=== PATIENT | female | born 1965 | race Hispanic/Latino ===

== ENCOUNTER → 2016-06-28 | Outpatient (CLI) | payer BC ==
[~2016-06-28] MED LIST: CETI10TA17; CETI10TA17 PO; FERR-84 PO; FLDR.1T PO; LACT1TAB11 PO; MNTL10T; PANT40SU; PNT40TEC PO; SUCR1TAB36 PO
--- NOTE | 2016-06-29 12:17 | Diagnostic Imaging Report ---
PROCEDURE: MRI lumbar spine. TECHNIQUE: Multiplanar, multisequence MRI of the lumbar spine was performed without contrast. INDICATION: Back pain. FINDINGS: The alignment of the posterior spinal line is satisfactory. The vertebral body heights are preserved. There is mild disc desiccation at all levels. There is mild disc height loss at the T12/L1 level. There are mild anterior osteophytes in the lower thoracic and upper lumbar spine levels also seen. There is marrow signal edema and sclerosis seen on the endplates at the T12/L1 level. This is reactive to disc disease with no suspicious marrow signal abnormality seen. The cauda equina and conus medullaris appear grossly unremarkable. T12/L1: There is a mild disc bulge with no central canal or lateral recess stenosis. No foraminal narrowing. L1/2: There is a minimal disc bulge and mild ligamentous flavum thickening. No central canal or lateral recess stenosis. No foraminal narrowing. L2/3: There is a mild disc bulge and mild facet and ligamentous hypertrophy. No central canal or lateral recess stenosis. No foraminal stenosis. L3/L4: No disc herniation. No central canal or lateral recess stenosis. There is mild facet hypertrophy seen at both sides. There is also along the superior lateral aspect of the left facet joint a synovial cyst measuring 6 mm without mass effect on the foramina or the spinal canal. Both foramina appear patent. A tiny synovial cyst superior to the right facet joints is also present. L4/L5: There is a minimal disc bulge and mild facet hypertrophy. No central canal stenosis. There is minimal narrowing of the lateral recess bilaterally. The right foramen demonstrates mild narrowing medially with portion of the hypertrophied facets on the right side projecting into the foramen mildly compressing the adjacent right L4 spinal nerve. L5/S1: There is a diffuse disc bulge asymmetric to the left. There is no significant facet arthropathy. No central canal stenosis. There is mild narrowing of the left lateral recess. The right lateral recess is patent. The posterior lateral herniated disc on the left side displaces the descending left S1 nerve root posteriorly in the left lateral recess without significant compression otherwise. The foramina demonstrates mild stenosis bilaterally. IMPRESSION: Generally mild degenerative disc and facet changes. Dictated by: Dictated on workstation # [id number]
== END ==
LOC: RAD 13:04
PROVIDERS: ATTEND Family Medicine
DX: M54.42 Lumbago with sciatica, left side (principal)
CPT/HCPCS: 72148

== ENCOUNTER → 2016-11-29 | Outpatient (CLI) | payer BC | DX: Z12.31 Encounter for screening mammogram for malignant neoplasm of breast (principal) ==

== ENCOUNTER 2017-01-14 05:48 | Outpatient (CLI) | payer BC ==
[~2017-01-14] VITALS: Ht 160 cm; Wt 71.2 kg
[2017-01-15] MEDS ORDERED: SUCR1TAB36 PO ×2 (11:57)
== END 2017-01-14 10:22 ==
LOC: PREOP 05:48
PROVIDERS: ATTEND Surgery
DX: Z01.818 Encounter for other preprocedural examination (principal); K21.9 Gastro-esophageal reflux disease without esophagitis

== ENCOUNTER 2017-01-15 10:05 | Day surgery (SDC) | payer BC ==
[2017-01-15] MEDS ORDERED: LACTATED RINGERS 1,000 ML IV STA (10:15)
[2017-01-15] MEDS ORDERED: HURRICAINE EXT TUBE (BENZOCAINE) XX PRN (10:15)
[2017-01-15 10:20] VITALS: BP 106/58
[2017-01-15] MEDS ORDERED: proPOfol 200 MG/20 ML (DIPRIVAN) VIAL IV ONE ×2 (11:06→11:19)
[2017-01-15] MEDS ORDERED: LIDOCAINE PF 2% 5 ML (XYLOCAINE) VIAL ONE (11:06)
--- NOTE | 2017-01-15 11:07 | Progress Note-Pre Operative ---
Pre-Operative Progress Note H&P Reviewed The H&P was reviewed, patient examined and no changes noted. Date Seen by Provider: Jan 15, 2017 Time Seen by Provider: 11:06 Date H&P Reviewed: Jan 15, 2017 Time H&P Reviewed: 11:06 Pre-Operative Diagnosis: gerd JOHNSON WALKER DO Jan 15, 2017 11:06
[2017-01-15] MEDS ORDERED: HURRICAINE EXT TUBE (BENZOCAINE) ONE (11:08)
[2017-01-15 11:50] VITALS: BP 93/53
[2017-01-15] MEDS ORDERED: SUCR1TAB36 PO ×2 (11:57)
--- NOTE | 2017-01-15 11:58 | Discharge Inst-Simple/Standard ---
Discharge Inst-Standard Patient Instructions/Follow Up Plan of Care/Instructions/FU: follow up in 2 weeks Take medication as directed. Activity as Tolerated: Yes Discharge Diet: No Restrictions ABELARDO SCOTT APRN Jan 15, 2017 11:58
[2017-01-15 12:20] VITALS: BP 109/47
[2017-01-15 12:25] VITALS: BP 109/47
--- NOTE | 2017-01-15 13:20 | Progress Note-Post Operative ---
Post-Operative Progess Note Surgeon (s)/Pharmacy Affairs Assistant (s) Surgeon JOHNSON WALKER DO Pharmacy Affairs Assistant: na Pre-Operative Diagnosis gerd Post-Operative Diagnosis gastritis Procedure & Operative Findings Date of Procedure 01/15/17 Procedure Performed/Findings egd c biopsies Anesthesia Type per golf club weigher Estimated Blood Loss Estimated blood loss (mL): none Specimens/Packing Specimens Removed antrum, ge junction JOHNSON WALKER DO Jan 15, 2017 1:20 pm
--- NOTE | 2017-01-16 02:55 | OPERATIVE REPORT ---
DATE OF SERVICE: 01/15/2017 PREOPERATIVE DIAGNOSIS: Gastroesophageal reflux disease. POSTOPERATIVE DIAGNOSIS: Gastritis, small hiatal hernia. PROCEDURE: EGD with biopsy. SURGEON: Johnson Unger DO ANESTHESIA: Per CURING ROOM WORKER. ESTIMATED BLOOD LOSS: None. COMPLICATIONS: None. INDICATIONS: The patient is a 52-year-old female with slightly worsening reflux symptoms. She understands risks and benefits of procedure and wished to proceed with procedure. Consent was signed and in the chart. DESCRIPTION OF PROCEDURE: The patient was taken to the endoscopy suite, placed in left lateral recumbent position. Timeout was performed. Scope was inserted in mouth, down the esophagus, stomach and into the duodenum without difficulty. There were no polyps, masses or ulcerations within the duodenum. The scope was then slowly retracted back, stomach was further insufflated. Some slight erythematous changes present consistent with slight gastritis that was present. Biopsy of the antrum was obtained. Scope was retroflexed noting small hiatal hernia and some couple small benign appearing polyps. Scope was returned to its normal position, slowly withdrawn back into the distal esophagus, which had some slight erythematous changes. Biopsy of the GE junction was obtained. Scope was then slowly retracted back until completely removed, noting no other pathology. RECOMMENDATIONS: The patient will be kept on Protonix 40 mg daily. We will add Carafate 1 gram four times a day. We will have her follow up in the office in approximately 3 weeks to see how she is doing at that time. Job ID: [id number] DocumentID: [id number] Dictated Date: 01/15/2017 13:23:11 Fitness Club Manager Date: 01/16/2017 02:54:26 Dictated By: JOHNSON UNGER DO
== END 2017-01-15 12:25 | disposition home or self-care (01) ==
LOC: ENDO 10:05
PROVIDERS: ATTEND Surgery
DX: K21.9 Gastro-esophageal reflux disease without esophagitis (principal); K44.9 Diaphragmatic hernia without obstruction or gangrene; K29.70 Gastritis, unspecified, without bleeding; J45.909 Unspecified asthma, uncomplicated; F41.9 Anxiety disorder, unspecified; M54.9 Dorsalgia, unspecified; Z79.899 Other long term (current) drug therapy
CPT/HCPCS: 84703

== ENCOUNTER 2017-03-14 14:54 | Outpatient (CLI) | payer BC ==
[~2017-03-14] VITALS: Ht 160 cm; Wt 71.2 kg
[2017-03-14] MEDS ORDERED: methylPREDNISolone 80 MG/ML (DEPO MEDROL) VIAL ONE (15:21)
[2017-03-14 16:00] VITALS: BP 118/70
[2017-03-14 16:23] VITALS: BP 116/72
--- NOTE | 2017-03-20 12:29 | OPERATIVE REPORT ---
DATE OF SERVICE: DIAGNOSIS: Lumbar radiculopathy. PROCEDURE: Fluoroscopic guided interlaminar epidural steroid injection. PROCEDURE IN DETAIL: After obtaining informed consent from the patient, the patient's chart was reviewed. The patient was then brought to the procedure room and placed in the prone position. A timeout was performed. The back was prepped with antiseptic solution and under fluoro guidance, the patient's lumbar spine was identified at the level of L5-S1. The L5-S1 vertebra was identified with fluoro guidance and approximately 2 mL of 1.5% lidocaine solution was used to anesthetize the skin directly down to the pedicle of the L5-S1 and under fluoroscopic guidance, the tract was anesthetized up to the interlaminar space and the ligamentum flavum. This needle was withdrawn. Then, a 20-gauge 3.5 inch Tuohy needle was then directed following the same tract that was anesthetized with the spinal needle. Using loss of resistance, the epidural space was identified and then the syringe was switched for contrast solution which was injected, approximately 1 mL. After secondary confirmation of epidural access, another syringe was placed and 80 mg of Depo-Medrol was injected. The Tuohy needle was then flushed out with approximately 2 mL of the normal saline used from the loss of resistance syringe. Band-Aids were applied to all the procedure sites. The patient tolerated the procedure well and was taken to the recovery room in stable condition. COMPLICATIONS: None. Job ID: [id number] DocumentID: [id number] Dictated Date: 03/19/2017 13:27:10 Street Light Repairer Helper Date: 03/20/2017 03:49:41 Dictated By: PING WASHINGTON DO
== END 2017-03-14 16:25 | disposition home or self-care (01) ==
LOC: CARD 14:54
PROVIDERS: ATTEND Pain Medicine Interventional Pain Medicine
DX: M54.16 Radiculopathy, lumbar region (principal); M47.817 Spondylosis without myelopathy or radiculopathy, lumbosacral region
CPT/HCPCS: 62323

== ENCOUNTER → 2018-12-02 | Outpatient (CLI) | payer BC ==
--- NOTE | 2018-12-02 15:37 | Diagnostic Imaging Report ---
INDICATION: Routine screening. COMPARISON: 12/02/2017 and 11/29/2016. TECHNIQUE: 2D and 3D bilateral screening mammography was performed with CAD. FINDINGS: Both breasts are heterogeneously dense, limiting the sensitivity of mammography. The circumscribed ovoid density in the medial right breast appears stable. The circumscribe ovoid density in the lateral portion of the left breast also appears to be stable. No new mass or malignant appearing microcalcifications are seen. The axillae are unremarkable. IMPRESSION: No mammographic features suspicious for malignancy are identified. ACR BI-RADS Category 2: Benign findings. Result letter will be mailed to the patient. Note: At least 10% of breast cancer is not imaged by mammography. Dictated by: Dictated on workstation # [id number]
== END ==
LOC: RAD 14:37
PROVIDERS: ATTEND Obstetrics & Gynecology
DX: Z12.31 Encounter for screening mammogram for malignant neoplasm of breast (principal)
CPT/HCPCS: 77067

== ENCOUNTER 2018-12-17 14:30 | Outpatient (CLI) | payer BC ==
[~2018-12-17] VITALS: Ht 160 cm; Wt 67.6 kg
[2018-12-17] MEDS ORDERED: CETI10TA17 PO (14:40)
[2018-12-17] MEDS ORDERED: PANT40TA3 PO (14:40)
== END 2018-12-17 14:51 | disposition home or self-care (01) ==
LOC: PREOP 14:30
PROVIDERS: ATTEND Surgery
DX: Z01.818 Encounter for other preprocedural examination (principal)

== ENCOUNTER 2019-05-17 12:37 | Emergency (ER) | payer BC ==
[~2019-05-17] VITALS: Ht 160 cm; Wt 68.1 kg
[~2019-05-17 12:37] MED LIST changes: +PANT40TA3 PO
--- NOTE | 2019-05-17 13:51 | ED Integumentary General ---
General Chief Complaint: Laceration Stated Complaint: R HAND LAC Nursing Triage Note: Patient ambulatory to FT3 with complaint of right hand laceration. Patient states she was cutting potatoes with a mandelin slicer when she accidently cut herself. Bleeding has not stopped. Patient is currently on Cephalexin for a sinus infection. Source: patient Exam Limitations: no limitations History of Present Illness Date Seen by Provider: May 17, 2019 Time Seen by Provider: 13:51 Initial Comments 54-year-old female patient presents with complaints of laceration to the right hand after using a mandolin slicer just prior to arrival. Reports laceration continues to bleed. She denies numbness or tingling. Patient currently is on Keflex for a sinus infection. Timing/Duration: just prior to arrival Location: hands (rt hand) Possible Cause: other (mandolin slicer) Modifying Factors: worse with other (worsening pain with palpation) Allergies and Home Medications Allergies Coded Allergies: azithromycin (Unverified Allergy, Mild, 01/14/17) acetaminophen (Verified Allergy, Unknown, itching, 01/14/17) oxycodone (Verified Allergy, Unknown, itching, 01/14/17) propoxyphene (Verified Allergy, Unknown, itching, 01/14/17) Home Medications Cetirizine HCl 10 Mg Tablet, 10 MG PO HS, (Reported) Ferrous Sulfate 325 Mg Tablet, 325 MG PO HS, (Reported) Fludrocortisone Acetate 0.1 Mg Tab, 0.1 MG PO HS, (Reported) Pantoprazole Sodium 40 Mg Tablet.dr, 40 MG PO HS, (Reported) Patient Home Medication List Home Medication List Reviewed: Yes Review of Systems Review of Systems Constitutional: no symptoms reported Respiratory: no symptoms reported Cardiovascular: no symptoms reported Musculoskeletal: no symptoms reported Skin: see HPI Psychiatric/Neurological: Denies Numbness, Denies Paresthesia, Denies Tingling, Denies Weakness Hematologic/Lymphatic: No Symptoms Reported All Other Systems Reviewed Negative Unless Noted: Yes (Negative excepted noted.) Past Dqjdtav-Rsgeax-Wnvybl Hx Past Med/Social Hx: Reviewed Nursing Past Med/Soc Hx Patient Social History Recent Foreign Travel: No Contact w/Someone Who Travel: No Recent Infectious Disease Expo: No Recent Hopitalizations: No Immunizations Up To Date Tetanus Booster (TDap): Unknown Date of Pneumonia Vaccine: Jul 27, 2010 Date of Influenza Vaccine: Mar 19, 2016 Seasonal Allergies Seasonal Allergies: Yes Past Medical History Surgeries: Yes (right foot) Gallbladder Respiratory: Yes (ALLERGY INDUCED ASTHMA) Asthma Cardiac: Yes (INFREQUENT PALPITATIONS TYPICALLY R/T ANXIETY) Neurological: No Reproductive Disorders: No Female Reproductive Disorders: Denies Sexually Transmitted Disease: Yes HIV/AIDS: No Genitourinary: No Gastrointestinal: Yes (dysphagia) Gastroesophageal Reflux, Hiatal Hernia Musculoskeletal: No Chronic Back Pain Endocrine: No HEENT: No Loss of Vision: Bilateral Hearing Impairment: Denies Cancer: No Psychosocial: Yes Anxiety Integumentary: Yes Eczema Blood Disorders: Yes (HX LOW IRON) Adverse Reaction/Blood Tranf: No (N/A) Family Medical History Reviewed Nursing Family Hx No Pertinent Family Hx Physical Exam Vital Signs Vital Signs - First Documented 05/17/19 13:00 Temp 36.8 Pulse 90 Resp 14 B/P (MAP) 106/56 (73) Pulse Ox 97 O2 Delivery Room Air Capillary Refill : Less Than 3 Seconds General Appearance: WD/WN, no apparent distress Cardiovascular: normal peripheral pulses, regular rate, rhythm, no murmur Respiratory: lungs clear, normal breath sounds, no respiratory distress Extremities: normal range of motion, normal capillary refill; No swelling; other (1x3 cm superficial flap laceration (involving skin only) to the rt thenar palm with slight bleeding. No subcutaneous tissue visible. No cellulitis. Mild soft tissue tenderness. No bony tenderness noted.) Neurologic/Psychiatric: no motor/sensory deficits, alert, normal mood/affect, oriented x 3 Skin: normal color, warm/dry, other (1x3 cm superficial flap laceration (involving skin only) to the rt thenar palm with slight bleeding. No subcutaneous tissue visible. No cellulitis. Mild soft tissue tenderness. No bony tenderness noted.) Skin Problem Location: upper extremities (rt hand) Skin Problem Character: other (1x3 cm superficial flap laceration (involving skin only) to the rt thenar palm with slight bleeding. No subcutaneous tissue visible. No cellulitis. Mild soft tissue tenderness. No bony tenderness noted.) Progress/Results/Core Measures Results/Orders My Orders Orders - KASH GRADY Dipht,Pertuss(Acell),Tet Adult (Boostrix (05/17/19 14:15) Medications Given in ED Current Medications Medications Dose Ordered Sig/Valeria Route Start Time Stop Time Status Last Admin Dose Admin Diphtheria/ Tetanus/Acell Pertussis 0.5 ml ONCE ONCE IM 05/17/19 14:15 05/17/19 14:16 DC 05/17/19 14:28 0.5 ML Vital Signs/I&O 05/17/19 13:00 Temp 36.8 Pulse 90 Resp 14 B/P (MAP) 106/56 (73) Pulse Ox 97 O2 Delivery Room Air Blood Pressure Mean: 73 POS Departure Communication (Admissions) Wound cleansed with chlorhexidine and sterile saline. Steri-Strips and Mastisol applied to the skin flap to protect the wound bed. Wound wrapped with 4 x 4 g auze, Kerlix, and a Colles' splint applied to protect the hand. Patient to follow-up with her primary care provider if needed. Return to the emergency department for worsened symptoms or any other concerns. Impression Primary Impression: Superficial laceration of right hand Qualified Codes: S61.411A - Laceration without foreign body of right hand, initial encounter Disposition: HOME, SELF-CARE Condition: Improved Departure-Patient Inst. Decision time for Depature: 14:12 Referrals: ROLAND SPAULDING MD (PCP/Family) Primary Care Physician Patient Instructions: Wound Care Add. Discharge Instructions: All discharge instructions reviewed with patient and/or family. Voiced understanding. Continue usual home medications. Ibuprofen [id number] as directed for pain. Tomorrow morning you may remove the bandage. Shower with antibacterial soap. Avoid scrubbing the right hand until the wound has healed. Pat dry. Cover with gauze. You may use the hand brace as instructed to help protect the wound. Follow-up with your family practitioner if needed. Return in the emergency department for worsened symptoms, redness, fever, drainage, or any other concerns. KASH GRADY May 17, 2019 13:51 POS
[2019-05-17] MEDS ORDERED: TETANUS,DIPTH,PERTUSS P/F (BOOSTRIX) 0.5 ML VIAL IM ONE (14:15)
[2019-05-17 14:32] VITALS: BP 106/56
== END 2019-05-17 14:34 | disposition home or self-care (01) ==
LOC: EDUNIT# 12:37 → ER 12:38
DX: S61.411A Laceration without foreign body of right hand, initial encounter (principal); J45.909 Unspecified asthma, uncomplicated; K21.9 Gastro-esophageal reflux disease without esophagitis; F41.9 Anxiety disorder, unspecified; Z23 Encounter for immunization; Z88.1 Allergy status to other antibiotic agents; Z88.6 Allergy status to analgesic agent; Z88.5 Allergy status to narcotic agent; Z88.8 Allergy status to other drugs, medicaments and biological substances; W26.8XXA Contact with other sharp object(s), not elsewhere classified, initial encounter
CPT/HCPCS: 90471; 90715; 99284

== ENCOUNTER → 2019-11-12 | Outpatient (CLI) | payer BC | LOC: CARD 09:13 | PROVIDERS: ATTEND Internal Medicine Cardiovascular Disease | DX: R00.2 Palpitations (principal); R06.00 Dyspnea, unspecified; R00.1 Bradycardia, unspecified; K21.9 Gastro-esophageal reflux disease without esophagitis | CPT/HCPCS: 93306 ==

== ENCOUNTER → 2019-11-18 | Outpatient (CLI) | payer BC ==
[~2019-11-18] VITALS: Ht 160 cm; Wt 154.0 kg
[~2019-11-18] MED LIST changes: +CATHETER FLUSH 10 ML SYR IV PRN
[2019-11-18 16:43] VITALS: BP 102/76
--- NOTE | 2019-11-18 16:43 | Cardiology Stress Test Report ---
Stress Test Report Date of Procedure/Referring: Date of Procedure: Nov 18, 2019 PCP Deanne Pappas MD Admitting Physician Mariella Andrea MD Indications: Palpitation Baseline Heart Rate: 72 Baseline Blood Pressure: Blood Pressure Systolic: 102 Blood Pressure Diastolic: 76 Baseline EKG: Baseline EKG: Normal sinus rhythm Summary/Conclusion: Summary: In summary, the patient started exercising with a baseline heart rate, blood pressure and EKG mentioned above Patient was able to exercise for a total of 10 minutes on Rajeev protocol, 11.7 METs Maximum heart rate 157 Maximum blood pressure 146/84 Stress EKG Minimal nondiagnostic changes Recovery EKG Return to baseline Patient received iron resting and stress dose of Myoview, images were acquired and reviewed. Review of the images showed no significant ischemia or infarction SSS 0 SDS 0 TID 1.12 Ejection fraction 71 percent Conclusion: 1. Good exercise tolerance for a total of 10 minutes on Rajeev protocol, 11.7 METs, achieving 94 percent of maximum expected heart rate 2. Minimal nondiagnostic EKG changes with exercise returned to baseline during recovery 3. No arrhythmia was noted 4. No ischemia or infarction on SPECT images 5. Normal LV size, EF 71 percent EDANNE PAPPAS MD Nov 18, 2019 16:43
== END ==
LOC: CARD 07:35
PROVIDERS: ATTEND Internal Medicine Cardiovascular Disease
DX: R00.2 Palpitations (principal); R06.00 Dyspnea, unspecified; R00.1 Bradycardia, unspecified; K21.9 Gastro-esophageal reflux disease without esophagitis
CPT/HCPCS: 78452; 93017; A9502

== ENCOUNTER → 2020-01-15 | Outpatient (CLI) | payer BC ==
[~2020-01-15] MED LIST changes: -CATHETER FLUSH 10 ML SYR IV PRN
--- NOTE | 2020-01-18 08:49 | Diagnostic Imaging Report ---
INDICATION: Routine screening. Comparison is made with prior mammogram 12/02/2018 and 12/02/2017. 2-D and 3-D bilateral screening mammography was performed with CAD. Both breasts remain heterogeneously dense, limiting the sensitivity of mammography. Circumscribed nodules in both breasts appear to be stable. No new mass or malignant appearing microcalcifications are seen. Axillae are unremarkable. IMPRESSION: BI-RADS Category 2 No mammographic features suspicious for malignancy are identified. Dictated by: Dictated on workstation # [id number]
== END ==
LOC: RAD 15:17
PROVIDERS: ATTEND Obstetrics & Gynecology
DX: Z12.31 Encounter for screening mammogram for malignant neoplasm of breast (principal)
CPT/HCPCS: 77063; 77067

== ENCOUNTER → 2021-01-16 | Outpatient (CLI) | payer BC ==
[~2021-01-16] MED LIST changes: -PANT40TA3 PO; +PANT40TA52 PO
--- NOTE | 2021-01-17 14:21 | Diagnostic Imaging Report ---
INDICATION: Routine screening. COMPARISON: 01/15/2020 and 12/02/2018. TECHNIQUE: 2D and 3D bilateral screening mammography was performed with CAD. FINDINGS: Both breasts are heterogeneously dense, limiting the sensitivity of mammography. A circumscribed nodule in the outer aspect of the left breast is stable. The previously noted circumscribed nodules in the right breast are less prominent on today's study. No spiculated mass or malignant-appearing microcalcifications are seen. The axillae are unremarkable. IMPRESSION: No mammographic features suspicious for malignancy are identified. ACR BI-RADS Category 2: Benign findings. Result letter will be mailed to the patient. Note: At least 10% of breast cancer is not imaged by mammography. Dictated by: Dictated on workstation # [id number]
== END ==
LOC: RAD 15:45
PROVIDERS: ATTEND Obstetrics & Gynecology
DX: Z12.31 Encounter for screening mammogram for malignant neoplasm of breast (principal)
CPT/HCPCS: 77063; 77067

== ENCOUNTER 2021-01-23 05:30 | Outpatient (RCR) | payer BC ==
[~2021-01-23] VITALS: Ht 157.5 cm; Wt 69.9 kg
[~2021-01-23 05:30] MED LIST changes: +FLUT9.9S NS; +L.AC1CAP6 PO; +LEVO5TAB28 PO
== END 2021-01-23 08:46 | disposition home or self-care (01) ==
LOC: PREOP 05:30
PROVIDERS: ATTEND Surgery
DX: Z01.818 Encounter for other preprocedural examination (principal); Z20.822 Contact with and (suspected) exposure to COVID-19; Z12.11 Encounter for screening for malignant neoplasm of colon; K21.9 Gastro-esophageal reflux disease without esophagitis
CPT/HCPCS: 87635

== ENCOUNTER 2021-01-24 07:06 | Day surgery (SDC) | payer BC ==
[~2021-01-24] VITALS: Ht 157.5 cm; Wt 70.0 kg
[2021-01-24 07:15] VITALS: BP 110/67
[2021-01-24] MEDS ORDERED: MIDAZOLAM 2 MG/2 ML (VERSED) VIAL ONE (07:15)
[2021-01-24] MEDS ORDERED: PROPOFOL INJECTION 50 ML IV ONE (07:15)
[2021-01-24] MEDS ORDERED: LACTATED RINGERS 1,000 ML IV STA (07:17)
[2021-01-24] MEDS ORDERED: HURRICAINE EXT TUBE (BENZOCAINE) XX PRN (07:30)
[2021-01-24 08:35] VITALS: BP 94/55
--- NOTE | 2021-01-24 08:37 | Discharge Inst-Simple/Standard ---
Discharge Inst-Standard Patient Instructions/Follow Up Plan of Care/Instructions/FU: 2 week Cornel Activity as Tolerated: Yes Discharge Diet: Regular Diet JOHNSON WALKER DO Jan 24, 2021 08:37
--- NOTE | 2021-01-24 08:39 | Progress Note-Post Operative ---
Post-Operative Progess Note Surgeon (s)/Lead Mechanical Engineer (s) Surgeon JOHNSON WALKER DO Lead Mechanical Engineer: na Pre-Operative Diagnosis dysphagia, gerd, hiatal hernia Post-Operative Diagnosis Small hiatal hernia, gastric polyps, internal hemorrhoids Procedure & Operative Findings Date of Procedure 01/24/21 Procedure Performed/Findings egd c biopsy colonoscopy Anesthesia Type per tobacco classer Estimated Blood Loss Estimated blood loss (mL): na Specimens/Packing Specimens Removed ge JOHNSON WALKER DO Jan 24, 2021 08:39
[2021-01-24 08:40] VITALS: BP 94/55
[2021-01-24 08:45] VITALS: BP 99/60
[2021-01-24 09:10] VITALS: BP 99/75
[2021-01-24 09:21] VITALS: BP 99/75
--- NOTE | 2021-01-24 10:48 | OPERATIVE REPORT ---
DATE OF SERVICE: 01/24/2021 PREOPERATIVE DIAGNOSES: Dysphagia, gastroesophageal reflux disease, hiatal hernia. POSTOPERATIVE DIAGNOSES: Small hiatal hernia, gastric polyps and internal hemorrhoids. PROCEDURE: EGD with biopsy, colonoscopy. SURGEON: Johnson Unger DO ANESTHESIA: Per CREATIVE ARTS THERAPIST. ESTIMATED BLOOD LOSS: None. COMPLICATIONS: None. INDICATIONS: The patient is a 56-year-old female having some dysphagia symptoms, GERD symptoms and hiatal hernia previously. She understands risks and benefits of procedure and wished to proceed with procedure. Consent was signed in the chart. DESCRIPTION OF PROCEDURE: The patient was taken to the endoscopy suite, placed in left lateral recumbent position. Timeout was performed. Scope was inserted in mouth, down the esophagus, stomach and into the duodenum without difficulty. There were no polyps, masses or ulcerations within the duodenum. Scope was slowly retracted back into the stomach where it was further insufflated. Multiple benign appearing polyps present in the stomach. Stomach had normal appearance. No masses or ulcerations. Scope was retroflexed noting a very small hiatal hernia, no other pathology noted. Scope was returned to its normal position, slowly withdrawn to distal esophagus, some slight reflux changes. Biopsy of the GE junction was obtained. Scope was then slowly retracted back until completely removed, noting no other pathology. Digital rectal exam was performed noting internal hemorrhoids. No polyps, masses or ulcerations. Scope was inserted in the rectum, advanced all the way to cecum with minimal difficulty. Prep was adequate. Scope was then slowly retracted back. No polyps, masses or ulcerations in the cecum, ascending, transverse, descending and sigmoid colon. Once in the rectum, scope was retroflexed noting no other pathology except for internal hemorrhoids. Scope was returned to its normal position, slowly withdrawn until completely removed. The patient tolerated procedure well without any complications. She was taken to recovery room in stable condition. RECOMMENDATIONS: The patient will discuss biopsy results and see how her symptoms are doing in approximately 2 weeks. We would also consider formal hemorrhoidectomy if the patient is having issues with hemorrhoids. Job ID: [id number] DocumentID: [id number] Dictated Date: 01/24/2021 08:42:00 Customer Sales Distributor Date: 01/24/2021 10:46:48 Dictated By: JOHNSON UNGER DO
--- NOTE | 2021-01-24 14:54 | Anesthesia-General Post-Op ---
MAC Patient Condition Mental Status/LOC: Same as Preop Cardiovascular: Satisfactory Nausea/Vomiting: Absent Respiratory: Satisfactory Pain: Controlled Complications: Absent Post Op Complications Complications None Follow Up Care/Instructions Patient Instructions None needed. Anesthesiology Discharge Order Discharge Order Patient is doing well, no complaints, stable vital signs, no apparent adverse anesthesia problems. No complications reported per nursing. RACHELL SAMUELS CRNA Jan 24, 2021 14:54
== END 2021-01-24 09:30 | disposition home or self-care (01) ==
LOC: ENDO 07:06
PROVIDERS: ATTEND Surgery
DX: Z12.11 Encounter for screening for malignant neoplasm of colon (principal); K31.7 Polyp of stomach and duodenum; K64.8 Other hemorrhoids; K44.9 Diaphragmatic hernia without obstruction or gangrene; J45.909 Unspecified asthma, uncomplicated; K21.9 Gastro-esophageal reflux disease without esophagitis; Z79.899 Other long term (current) drug therapy; Z79.51 Long term (current) use of inhaled steroids; Z90.49 Acquired absence of other specified parts of digestive tract
CPT/HCPCS: 88305

== ENCOUNTER → 2021-10-16 | Outpatient (CLI) | payer BC ==
--- NOTE | 2021-10-16 12:31 | Diagnostic Imaging Report ---
INDICATION: Bruising and swelling of the foot status post injury. COMPARISON: None FINDINGS: 3 radiographic views of the left foot were obtained and show slightly displaced acute oblique oriented fracture involving the distal margins of the 5th metatarsal. There is no intra-articular extension. Joint spaces are otherwise maintained. No unexpected radiopaque foreign bodies are identified. IMPRESSION: 1. Acute fracture of the 5th metatarsal as above. Dictated by: Dictated on workstation # [id number]
== END ==
LOC: RAD 11:15
PROVIDERS: ATTEND Nurse Practitioner Family
DX: S92.352A Displaced fracture of fifth metatarsal bone, left foot, initial encounter for closed fracture (principal)
CPT/HCPCS: 73630

== ENCOUNTER → 2022-01-17 | Outpatient (CLI) | payer BC ==
--- NOTE | 2022-01-17 12:50 | Diagnostic Imaging Report ---
Indication: Routine screening. Comparison is made with prior mammogram 01/16/2021 and 01/15/2020. 2-D and 3-D bilateral screening mammography was performed with CAD. CAD is utilized. The current study was also evaluated with a Computer Aided Detection (CAD) system. Scattered fibroglandular densities are identified bilaterally. Circumscribed densities in both breasts appears stable. No spiculated mass is seen. There are no malignant-appearing microcalcifications. Axillae are unremarkable. IMPRESSION: BI-RADS Category 2 No mammographic features suspicious for malignancy are identified. ACR BI-RADS Category 2: Benign findings. Result letter will be mailed to the patient. Note: At least 10% of breast cancer is not imaged by mammography. Dictated by: Dictated on workstation # [id number]
== END ==
LOC: RAD 08:54
PROVIDERS: ATTEND Obstetrics & Gynecology
DX: Z12.31 Encounter for screening mammogram for malignant neoplasm of breast (principal)
CPT/HCPCS: 77063; 77067

== ENCOUNTER 2022-12-12 07:03 | Outpatient (CLI) | payer BC ==
[~2022-12-12] VITALS: Ht 157.5 cm; Wt 68.8 kg
[2022-12-14] MEDS ORDERED: SUCR1TAB36 PO (15:54)
== END 2022-12-12 11:00 | disposition home or self-care (01) ==
LOC: PREOP 07:03
PROVIDERS: ATTEND Surgery
DX: Z01.818 Encounter for other preprocedural examination (principal)

== ENCOUNTER 2022-12-14 11:23 | Day surgery (SDC) | payer BC ==
[~2022-12-14] VITALS: Ht 157.5 cm; Wt 68.0 kg
[2022-12-14] MEDS ORDERED: LACTATED RINGERS 1,000 ML IV STA (11:25)
[2022-12-14] MEDS ORDERED: HURRICAINE EXT TUBE (BENZOCAINE) XX PRN (11:30)
[2022-12-14 11:44] VITALS: BP 113/74
--- NOTE | 2022-12-14 14:07 | Progress Note-Pre Operative ---
Pre-Operative Progress Note Date H&P Reviewed: Dec 14, 2022 Time H&P Reviewed: 14:07 History & Physical: H&P Reviewed, Patient Examed, No changes noted Pre-Operative Diagnosis: dysphagia, gerd JOHNSON WALKER DO Dec 14, 2022 14:07
[2022-12-14] MEDS ORDERED: SUCR1TAB36 PO (15:54)
[2022-12-14] MEDS ORDERED: PROPOFOL INJECTION 0 ML IV ONE (15:55)
[2022-12-14] MEDS ORDERED: proPOfol 200 MG/20 ML (DIPRIVAN) VIAL IV ONE ×2 (15:55→15:56)
--- NOTE | 2022-12-14 15:55 | Discharge Inst-Simple/Standard ---
Discharge Inst-Standard Discharge Medications New, Converted or Re-Newed RX: Transmitted to Pharmacy Patient Instructions/Follow Up Plan of Care/Instructions/FU: 2 weeks Cornel Activity as Tolerated: Yes Discharge Diet: Regular Diet JOHNSON WALKER DO Dec 14, 2022 15:55
--- NOTE | 2022-12-14 15:58 | Progress Note-Post Operative ---
Post-Operative Progess Note Surgeon (s)/Supervising Bailiff (s) Surgeon JOHNSON WALKER DO Supervising Bailiff: na Pre-Operative Diagnosis dysphagia, gerd Post-Operative Diagnosis small hiatal hernia Procedure & Operative Findings Date of Procedure 12/14/22 Procedure Performed/Findings egd c biopsies Anesthesia Type per trap operator Estimated Blood Loss Estimated blood loss (mL): none Specimens/Packing Specimens Removed antrum, ge JOHNSON WALKER DO Dec 14, 2022 15:58
[2022-12-14 16:00] VITALS: BP 83/52
[2022-12-14 16:27] VITALS: BP 83/52
--- NOTE | 2022-12-14 16:37 | Anesthesia-General Post-Op ---
MAC Patient Condition Mental Status/LOC: Same as Preop Cardiovascular: Satisfactory Nausea/Vomiting: Absent Respiratory: Satisfactory Pain: Controlled Complications: Absent Post Op Complications Complications None Follow Up Care/Instructions Patient Instructions None needed. Anesthesiology Discharge Order Discharge Order Patient is doing well, no complaints, stable vital signs, no apparent adverse anesthesia problems. No complications reported per nursing. SONIA BISWAS CRNA Dec 14, 2022 16:37
--- NOTE | 2022-12-14 19:18 | OPERATIVE REPORT ---
DATE OF SERVICE: 12/14/2022 PREOPERATIVE DIAGNOSES: Dysphagia, gastroesophageal reflux disease. POSTOPERATIVE DIAGNOSES: Small hiatal hernia. PROCEDURE: EGD with biopsy. SURGEON: Johnson Unger DO ANESTHESIA: Per SALES SERVICE EXECUTIVE. ESTIMATED BLOOD LOSS: None. COMPLICATIONS: None. SPECIMENS: Antrum GE junction. INDICATIONS: The patient is a 57-year-old female with dysphagia symptoms. Also reflux. She understands risks and benefits of procedure and wished to proceed. Consent was signed in chart. DESCRIPTION OF PROCEDURE: The patient was taken to endoscopy suite, placed in left lateral recumbent position. Timeout was performed. Scope was inserted in the mouth, down the esophagus, stomach and the duodenum without difficulty. There were no polyps, masses or ulcerations within the duodenum. Scope was slowly retracted back until stomach where it was further insufflated. No polyps, masses or ulcerations in the antrum. Scope was retroflexed noting small benign-appearing polyp. A small hiatal hernia, no other pathology. Scope was returned to its normal position, slowly withdrawn until distal esophagus. Biopsy of the antrum was obtained. Biopsy of GE junction was obtained. No polyps, masses or ulcerations. Scope was slowly retracted back until completely removed. The patient tolerated the procedure well without complications, taken to recovery room in stable condition. RECOMMENDATIONS: We will add Carafate 1 gram 4 times a day to see if any improvement. Await biopsy results. Further recommendation pending. Job ID: [id number] DocumentID: [id number] Dictated Date: 12/14/2022 15:58:24 Rn First Assistant Date: 12/14/2022 19:17:00 Dictated By: JOHNSON UNGER DO
== END 2022-12-14 16:27 | disposition home or self-care (01) ==
LOC: ENDO 11:23
PROVIDERS: ATTEND Surgery
DX: K21.9 Gastro-esophageal reflux disease without esophagitis (principal); K29.50 Unspecified chronic gastritis without bleeding; K44.9 Diaphragmatic hernia without obstruction or gangrene; E66.01 Morbid (severe) obesity due to excess calories; Z68.27 Body mass index [BMI] 27.0-27.9, adult; Z79.899 Other long term (current) drug therapy

== ENCOUNTER → 2023-01-21 | Outpatient (CLI) | payer BC ==
--- NOTE | 2023-01-21 15:49 | Diagnostic Imaging Report ---
INDICATION: Routine screening. Comparison is made prior mammogram from 01/17/2022 and 01/16/2021. 2-D and 3-D bilateral screening mammography was performed with CAD. Both breasts are heterogeneously dense, limiting the sensitivity of mammography. Circumscribed densities are again noted bilaterally, likely small cysts. No spiculated mass or malignant appearing microcalcifications are identified. Axillae are unremarkable. IMPRESSION: No mammographic features suspicious for malignancy are identified. ACR BI-RADS Category 2: Benign findings. Result letter will be mailed to the patient. Note: At least 10% of breast cancer is not imaged by mammography. BI-RADS Category 2 Dictated by: Dictated on workstation # [id number]
== END ==
LOC: RAD 10:23
PROVIDERS: ATTEND Obstetrics & Gynecology
DX: Z12.31 Encounter for screening mammogram for malignant neoplasm of breast (principal)
CPT/HCPCS: 77063; 77067

== ENCOUNTER → 2023-04-23 | Outpatient (CLI) | payer BC ==
--- NOTE | 2023-04-23 10:57 | Diagnostic Imaging Report ---
INDICATION: [facility] Z82.49 FAMILY HISTORY OF ISCHEMIA, ABDOMINAL AORTIC ANEURYSM TECHNIQUE: Grayscale sonographic images of the abdominal aorta. CORRELATION STUDY: None FINDINGS: Abdominal Aorta Proximal: 2.0 x 2.2 cm Mid: 1.3 x 1.4 cm Distal: 1.6 x 1.6 cm Common Iliac Arteries Right BHARATH: 0.8 x 0.9 cm Left BHARATH: 0.9 x 0.9 cm IMPRESSION: 1. Negative for abdominal aortic aneurysm. Dictated by: Dictated on workstation # [id number]
== END ==
LOC: RAD 08:47
PROVIDERS: ATTEND Internal Medicine Cardiovascular Disease
DX: Z82.49 Family history of ischemic heart disease and other diseases of the circulatory system (principal)
CPT/HCPCS: 76775